=== PATIENT | male | born 1970 | race Caucasian/White ===

== ENCOUNTER 2020-05-03 19:19 | Emergency (ER) | payer OTHER, SELFPAY ==
[2019-10-25 07:59] VITALS: BMI 17.9
[2020-05-03 19:19] VITALS: BP 145/92; PULSE 98; RESP 16; TEMP 36.3; O2SAT 96
[2020-05-03 19:20] VITALS: BP 145/92; PULSE 96; RESP 16; TEMP 36.3; O2SAT 97; BMI 30.2
--- NOTE | 2020-05-03 19:45 | RAD_ITS ---
STUDY: X-RAY - LEFT HAND, ATTENTION 4TH FINGER REASON FOR EXAM: Male, 49 years old. laceration to left 4th digit from glass TECHNIQUE: 3 view(s) of the finger were obtained. COMPARISON: 08/30/2013. FINDINGS: Normal metacarpal head. Normal metacarpophalangeal joint. Normal proximal phalanx. Normal middle phalanx. Normal distal phalanx. Normal proximal interphalangeal joint. Normal distal interphalangeal joint. Hyperdensity in the soft tissues anterior to the distal interphalangeal joint and distal phalanx of the 4th digit. This may represent soft tissue calcification or Iodine in the area of concern, less likely hemorrhage. RAD/Finger(s) Min 2 Views IMPRESSION: 1. No fracture or osseous abnormality. 2. Faint hyperdensity in the volar soft tissues, possible soft tissue calcification, Iodine, less likely hemorrhage. Electronically Signed: Marie Wilkinson MD at 20:52 EST Tel , Service support ,
--- NOTE | 2020-05-03 19:55 | ED.DCSUM_ITS ---
History of Present Illness Chief Complaint: Laceration Informant: Patient Narrative: Patient is a previously healthy 49-year-old male who presents to the emergency department for laceration to left ring and pinky finger. He states that he was reaching behind some blocked glass whenever there was a shard sticking out. He is still having active bleeding from the ring finger but bleeding controlled from the pinky finger. He denies any loss of sensation. No loss of strength or range of motion. He is not sure when his last tetanus shot was. He is not on any blood thinning medications. Past Medical History - Allergies and Home Meds Allergies/Adverse Reactions: Allergies No Known Allergies Allergy (Unverified 10/25/19 07:19) Primary Care Physician: Carter Hernandez MD [Primary Care Provider] - 7 Days for suture removal Prior records reviewed: Yes Past Medical History: None Smoking Status: Never smoker Review of Systems All systems negative except as indicated General: Denies: Chills, Fever ENT: Denies: Rhinorrhea Cardiovascular: Denies: Chest pain Respiratory: Denies: Dyspnea, Cough Gastrointestinal: Denies: Abdominal pain, Nausea, Vomiting Musculoskeletal: Reports: Extremity Pain. Denies: Swelling Skin: Reports: Wounds Hematologic: Denies: Easy bruising, Easy bleeding Physical Exam Vital Signs/Narrative: Vital Signs Temp Pulse Resp BP Pulse Ox 05/03/20 19:20 97.4 F L 96 16 145/92 H 97 05/03/20 19:19 97.4 F L 98 16 145/92 H 96 Inital Vital Signs reviewed: Yes General: Well nourished, Well developed Head: Normocephalic, Atraumatic Eyes: Perrl, EOMI ENT: Moist mucous membranes Neck: Supple, Nontender Respiratory: No distress Abdomen: Nondistended Extremities: - - 1.5 cm linear laceration to dorsal proximal ring finger. Superficial laceration to dorsal pinky finger. Skin: Normal color, No rash Neurological: Alert, Normal Strength, Normal Sensation Psychological: Normal affect, Normal Mood Diagnostic/Tx/Re-eval - Medical Decision Making Patient presents to the ED for laceration to his left fingers. He felt like there might be a foreign body if with the glass present so an x-ray was obtained. This did not show any obvious foreign body. I did not find any on physical exam. Wound copiously irrigated, cleaned with soapy water. The ring finger was repaired with 3 sutures. The cut to the pinky finger was dressed with antibiotic ointment and a Band-Aid. Fingers were hardy taped together. We will have him follow-up with his PCP for suture removal in 7 days. Warning signs and symptoms for which to return to the ED including any evidence of infection are reviewed. He understands and is agreeable this plan. Will discharge home in stable condition. Procedures Procedure(s): Laceration repair: Informed consent was obtained before procedure started. The appropriate timeout was taken. The area was prepped and draped in the usual sterile fashion. Local anesthesia was achieved using 4cc of lidocaine 1% without epinephrine utilizing a digital block. The wound was copiously irrig ated and cleaned with soapy water. 3 5-0 Ethilon simple interrupted sutures were placed. A dressing was applied to the area and anticipatory guidance, as well as standard post procedure care, was explained. Return precautions are given. The patient tolerated the procedure well without any apparent complications. Follow-up visit set for suture removal and evaluation of laceration. ED Disposition - Plan for ED Patient: Disposition: Home or Assisted Living Diagnosis: Finger laceration Instructions: ED Laceration All Closures Referrals: Carter Hernandez MD [Primary Care Provider] - 7 Days for suture removal
== END 2020-05-03 21:13 | disposition home or self-care (01) ==
PROVIDERS: Emergency Provider Emergency Medicine; PCP Family Medicine
DX: S61.215A Laceration without foreign body of left ring finger without damage to nail, initial encounter (principal); S61.217A Laceration without foreign body of left little finger without damage to nail, initial encounter; W25.XXXA Contact with sharp glass, initial encounter; Y93.9 Activity, unspecified; Y92.9 Unspecified place or not applicable; Y99.9 Unspecified external cause status
CPT/HCPCS: 12001; 73140; 99283

== ENCOUNTER 2021-05-20 07:10 | Emergency (ER) | payer OTHER, SELFPAY ==
[2021-05-20 07:11] VITALS: BP 147/87; PULSE 101; RESP 18; TEMP 36.4; O2SAT 96; BMI 30.2
--- NOTE | 2021-05-20 07:21 | CT_ITS ---
STUDY: CT ABDOMEN AND PELVIS WITH CONTRAST REASON FOR EXAM: Male, 50 years old. Pain. Evaluate for diverticulitis. RADIATION DOSAGE (If Supplied By Facility): CTDIvol = ( 17.83 ) mGy, DLP = ( 1349.44 ) mGycm TECHNIQUE: Transaxial images were obtained from the dome of the diaphragm to the symphysis pubis without oral contrast. 100 ml of ISOVUE-300 contrast was administered. Sagittal and coronal images were reconstructed. Individualized dose optimization techniques were used for this CT. COMPARISON: None. FINDINGS: The visualized lung bases are clear. The visualized portions of the heart and pericardium are within normal limits. There are no calcified gallstones present. The liver is within normal limits. There are no suspicious hepatic lesions. The spleen is normal in size. The pancreas is within normal limits. The adrenal glands are within normal limits. There are no renal or ureteral stones. There is no hydronephrosis. There are no focal renal lesions. Normal visualized stomach. There is no bowel obstruction. There is a large amount of stool in the colon and rectal vault, consistent with constipation and fecal impaction. There is bowel wall thickening in the rectosigmoid colon with adjacent stranding. This is consistent with stercoral colitis. The appendix is not visualized, but there are no findings to suggest acute appendicitis. The aorta is normal in caliber. There is no abdominal or pelvic free air, free fluid, fluid collection or lymphadenopathy. There are no destructive osseous lesions. CT/Abdomen/Pelvis W IV Cont ONLY IMPRESSION: Constipation and fecal impaction with wall thickening in the rectosigmoid colon. This is consistent with stercoral colitis. No bowel obstruction. No free air, free fluid or fluid collection. Electronically Signed: Jung Cooney MD at 8:29 EST Tel , Service support ,
--- NOTE | 2021-05-20 07:21 | EDS_ITS ---
HPI History of Present Illness Chief Complaint: Abd Pain Informant: patient and spouse/S.O. Narrative Narrative: 50-year-old male with no significant medical problems states that yesterday afternoon he developed left lower quadrant abdominal pain. He notes that it is worse with standing up straight in his legs while he is laying and walking. He describes a constant ache that occasionally becomes sharp and stabbing. No fevers. He notes anorexia but no nausea vomiting. States he is tried several things to have a bowel movement but cannot. No history of colonoscopy or diverticulitis. [facility] Medical History (Updated 05/20/21 @ 08:[address] Pedrito Thibodeaux DO) Seasonal allergies Shoulder pain SOB (shortness of breath) Home Medications amoxicillin-pot clavulanate 875 mg PO Q12H #7 tablet 05/20/21 [Rx Last Taken Unknown] dicyclomine 20 mg PO TIDAC PRN #20 capsule 05/20/21 [Rx Last Taken Unknown] docusate sodium [DOK] 100 mg PO DAILY #20 capsule 05/20/21 [Rx Last Taken Unknown] magnesium citrate 300 ml PO X1 PRN #3 bottle 05/20/21 [Rx Last Taken Unknown] Allergy/AdvReac Type Severity Reaction Status Date / Time No Known Allergies Allergy Unverified 05/20/21 07:12 Social History Smoking Status: Never smoker alcohol intake: never ROS ROS ED Constitutional Constitutional ED: Denies chills or weight loss Eyes Eyes: Denies change in vision or diplopia ENT ENT ED: Denies ear pain, rhinorrhea or sore throat Cardiovascular Cardiovascular: Denies chest pain, orthopnea, palpitations or racing heartbeat Respiratory/Chest Respiratory/Chest: Denies cough, dyspnea or orthopnea Gastrointestinal Gastrointestinal: Reports abdominal pain and constipation; Denies diarrhea, nausea or vomiting Genitourinary Genitourinary ED: Denies dysuria, hematuria or urinary frequency Musculoskeletal Musculoskeletal: Denies arthralgias or myalgias Integumentary Denies abscess or rash Neurologic Neurologic: Denies headache(s) or weakness Psychiatric Psychiatric: Denies anxiety, depression, suicidal ideation or suicidal thoughts Endocrine Endocrinology: Denies polydipsia, polyphagia or polyuria Allergic/Immunologic Allergic/Immunologic ED: Denies mouth swelling, tongue swelling or urticaria EXAM Physical Exam Narrative Exam Narrative: 50-year-old male laying on his back with his knees bent. Const Vital Signs: 05/20/21 07:11 Temperature 97.6 F L Temperature Source Temporal Pulse Rate 101 H Respiratory Rate 18 Blood Pressure 147/87 H Blood Pressure Mean 107 Pulse Ox 96 Oxygen Delivery Method Room Air Positive well nourished and well developed General Appearance ED: well developed HEENT Reports normocephalic, head/scalp atraumatic, TM's clear and moist mucous membranes Negative for trauma Tympanic Membrane ED: Yes TM's clear Eyes PERRL and EOMs intact bilaterally Neck no lymphadenopathy, supple and no JVD Resp normal respiratory effort and clear to auscultation bilaterally Cardio regular rate, regular rhythm and no murmurs GI Auscultation: normoactive bowel sounds Palpation: soft, tender LLQ and suprapubic and guarding Back/Spine no CVA tenderness and normal ROM Extremity normal to inspection General Extremety ED: Negative for edema General Extremity: Negative for edema Neuro oriented x3 and CN's II-XII intact bilaterally Sensorium / Orientation: alert Motor Exam: strength 5/5 throughout Psych mental status grossly normal Mood & Affect: Negative for depressed or tearful Skin no rashes or lesions noted and no wounds MDM MDM MDM Narrative Medical decision making narrative: White count slightly elevated 13.3. CMP and urine negative. CT of the abdomen pelvis with IV contrast was obtained which demonstrates large amount of stool in the descending sigmoid and rectum. There is evidence of stercoral colitis. Patient received pain and nausea medications. IV fluids were given. Patient will be treated with magnesium citrate, home enemas, Bentyl and daily Colace. He notes return instructions. Follow-up with primary care in 1 week. Lab Data Attestation: I reviewed the patient's lab results. Labs: Laboratory Results - last 24 hr 05/20/21 05/20/21 05/20/21 07:30 07:30 08:25 WBC 13.3 H RBC 5.03 Hgb 15.2 Hct 43.5 MCV 86.5 MCH 30.2 MCHC 34.9 RDW Std Deviation 39.5 RDW Coeff of Mayank 12.5 Plt Count 281 MPV 8.5 Immature Gran % (Auto) 0.300 Neut % (Auto) 80.1 H Lymph % (Auto) 11.7 L [place] % (Auto) 7.4 Eos % (Auto) 0.2 Baso % (Auto) 0.3 Absolute Neuts (auto) 10.7 H Absolute Lymphs (auto) 1.56 Nucleated RBC % 0 Sodium 136 Potassium 3.8 Chloride 104 Carbon Dioxide 25.0 Anion Gap 7 BUN 17 Creatinine 0.98 Estim Creat Clear Calc 91.18 Est GFR (MDRD) Af Amer 105 Est GFR (MDRD) Non-Af 86 BUN/Creatinine Ratio 17.4 Glucose 132 H Calcium 8.6 Total Bilirubin 0.70 AST 18 ALT 30 Alkaline Phosphatase 77 Total Protein 7.4 Albumin 3.6 Globulin 3.8 Albumin/Globulin Ratio 0.9 Urine Color Yellow Urine Clarity Clear Urine pH 6.5 Ur Specific [place] 1.010 Urine Protein Negative Urine Glucose (UA) Normal Urine Ketones Negative Urine Occult Blood Negative Urine Nitrite Negative Urine Bilirubin Negative Urine Urobilinogen Normal Ur Leukocyte Esterase Negative Urine RBC 0 SEEN Urine WBC 0 SEEN Ur Squamous Epith Cells 0 SEEN Urine Bacteria 0 SEEN Urine Mucus 0 SEEN Radiography Diagnostic Testing: Clinical Impression(s) from Imaging Studies Abdomen/Pelvis CT 05/20/21 07:21 IMPRESSION: Constipation and fecal impaction with wall thickening in the rectosigmoid colon. This is consistent with stercoral colitis. No bowel obstruction. No free air, free fluid or fluid collection. Electronically Signed: Jung Cooney MD at 8:29 EST Tel , Service support , Discharge Plan Triage Chief Complaint: Abd Pain ED Provider: Pedrito Thibodeaux Dx/Rx/DC Orders Clinical Impression: Constipation, Abdominal pain, acute, Stercoral colitis Prescriptions: New docusate sodium [DOK] 100 MG capsule 100 mg PO DAILY Qty: 20 RF: 0 amoxicillin-pot clavulanate [amoxicillin-pot clavulanate] 875 MG tablet 875 mg PO Q12H Qty: 7 RF: 0 magnesium citrate Solution 300 ml PO X1 PRN (Reason: constipation) Qty: 3 RF: 0 dicyclomine 10 MG capsule 20 mg PO TIDAC PRN (Reason: Abdominal Discomfort) Qty: 20 RF: 0 Primary Care Provider: Carter Hernandez Referrals: Carter Hernandez MD [Primary Care Provider] - 1 Week Disposition Disposition: Home, Self Care
[2021-05-20 07:32] LABS: Absolute Lymphocyte Count 1.56 X10^3/uL (0.83-4.51); Absolute Neutrophil Count 10.7 X10^3/uL (2.0-7.7); Basophil# 0.04 X10^3/uL; Basophil% 0.3 % (0-1); Eosinophil# 0.02 X10^3/uL; Eosinophils% 0.2 % (0-5); Hematocrit 43.5 % (40-54); Hemoglobin 15.2 g/dL (13.0-16.5); Lymphocyte # 1.56 X10^3/ul (0.83-4.51); Lymphocyte % 11.7 % (19-41); Mean Corp Hgb Conc 34.9 g/dL (32-36); Mean Corpuscular Hgb 30.2 pg (27.0-32.0); Mean Corpuscular Volume 86.5 fL (80-94); Mean Platelet Vol. 8.5 fl (6.2-12.0); Monocyte# 0.98 X10^3/uL; Monocyte% 7.4 % (0-10); NRBC Flagged by Analyzer 0 % (0-5); Neutrophil # 10.69 X10^3/uL (2.7-7.7); Neutrophil % 80.1 % (47-70); Platelet Count 281 K/mm3 (150-450); RBC Distribution Width CV 12.5 % (11.6-14.6); RBC Distribution Width SD 39.5 fl (35.1-43.9); Red Blood Count 5.03 M/mm3 (4.6-6.2); White Blood Count 13.3 K/mm3 (4.4-11.0)
[2021-05-20] MEDS: Morphine 4 MG/ML Syringe IV (07:32)
[2021-05-20] MEDS: 0.9% Normal Saline 1,000 ML 1000 ML IV (07:32)
[2021-05-20] MEDS: Ondansetron 4 MG/2 ML Vial IV (07:32)
[2021-05-20 07:49] LABS: ALB/GLOB Ratio 0.9 RATIO (0.9-2.4); AST(SGOT) 18 U/L (15-37); Alanine Aminotransfer ALT/SGPT 30 U/L (16-61); Albumin, Serum 3.6 g/dL (3.2-5.0); Alkaline Phosphatase 77 U/L (45-117); Anion Gap 7 (5-15); BUN 17 mg/dL (7-18); BUN/Creat Ratio 17.4 RATIO (10-20); Calcium,Total 8.6 mg/dL (8.5-10.1); Chloride 104 mmol/L (98-107); Creatinine, Serum 0.98 mg/dL (0.70-1.30); EST Glomerular Filtration Rate 86 mL/min (>60); Est Glom Filt Rate - Afr Amer 105 mL/min (>60); Estimated Creatinine Clearance 91.18 ml/min; Globulin 3.8 g/dL (2.2-4.2); Glucose 132 mg/dL (74-106); Potassium 3.8 mmol/L (3.5-5.1); Protein, Total 7.4 g/dL (6.4-8.2); Sodium Level 136 mmol/L (136-145)
[2021-05-20 08:27] LABS: Bacteria 0 SEEN /hpf (None Seen); Mucous, Urine 0 SEEN /hpf (<or=2+); Red Blood Cells-Urine 0 SEEN /hpf (0-5); Squamous Epithelial Cells - UA 0 SEEN /hpf (0-5); White Blood Cells 0 SEEN /hpf (0-5)
[2021-05-20 08:29] LABS: Color, Urine Yellow (Yellow); Glucose, Dipstick Normal (Normal); Ketone-Dipstick Negative (Negative); Leukocyte Esterase-Dipstick Negative /ul (Negative); Nitrite-Dipstick Negative (Negative); Occult Blood-Urine Negative /ul (Negative); Protein-Dipstick Negative (Negative); Urine Bilirubin Dipstick Negative (Negative); Urine Clarity Clear (Clear); Urine Urobilinogen Normal (Normal); Urine pH 6.5 (5.0 - 8.0)
[2021-05-20 09:05] VITALS: BP 129/66; PULSE 69; RESP 14; O2SAT 98
== END 2021-05-20 09:06 | disposition home or self-care (01) ==
PROVIDERS: Emergency Provider Emergency Medicine; PCP Family Medicine
DX: K52.89 Other specified noninfective gastroenteritis and colitis (principal); R10.32 Left lower quadrant pain; K59.00 Constipation, unspecified; Z79.899 Other long term (current) drug therapy
CPT/HCPCS: 74177; 80053; 81001; 85025; 96361; 96374; 96375; 99283; J7030; Q9967; A4216; J2405

== ENCOUNTER 2022-02-06 21:50 | Emergency (ER) | payer OTHER, SELFPAY ==
[2022-02-06 21:51] VITALS: BP 134/83; PULSE 77; RESP 18; TEMP 36.8; O2SAT 95; BMI 30.4
--- NOTE | 2022-02-06 22:11 | EDS_ITS ---
HPI History of Present Illness Chief Complaint: Lower Extremity Injury Informant: patient Onset/Context/Timing Onset: Today Context: Gradual Onset Timing: Continuous Quality of Pain: Aching Location: R knee Current Severity: Mild Maximum Severity: Moderate Worsened by: moving knee, palpation Relieved by: rest and remaining still Associated Symptoms Associated Symptoms: Negative for Parasthesia, Weakness or Loss of Funtion Narrative Narrative: Healthy 51-year-old male presenting with spontaneous onset of painful red swollen right knee that started earlier today and has progressed. He states that he comes in early this time because last time it was much more swollen than this, and he was treated with antibiotics and got better. He followed up with orthopedics but did not need surgery. He does not know what it exactly was. He states he is occasionally kneeling, he did this couple times in the last couple days but nothing more than usual. No injury. No fevers, chills, systemic symptoms. [facility] Medical History (Updated 02/06/22 @ 23:[address] Chris Vazquez MD) Seasonal allergies Shoulder pain SOB (shortness of breath) Home Medications clindamycin HCl 150 mg capsule 300 mg PO 4X/DAY #80 CAPSULES 02/06/22 [Rx Last Taken Unknown] Allergy/AdvReac Type Severity Reaction Status Date / Time No Known Allergies Allergy Verified 02/06/22 21:51 Social History Smoking Status: Never smoker alcohol intake: never ROS ROS ED Constitutional Constitutional ED: Denies chills or fever(s) Musculoskeletal Musculoskeletal: Reports extremity pain; Denies neck pain Integumentary Denies Abrasions, rash or wounds Neurologic Neurologic: Denies paresthesias or weakness EXAM Physical Exam Const Vital Signs: 02/06/22 21:51 Temperature 98.2 F Temperature Source Temporal Pulse Rate 77 Respiratory Rate 18 Blood Pressure 134/83 H Blood Pressure Mean 100 Pulse Ox 95 Oxygen Delivery Method Room Air Positive well nourished and well developed General Appearance ED: well developed and NAD Neck full ROM and supple Back/Spine normal ROM and normal to inspection Extremity normal to inspection and full ROM Extremity Narrative: Erythematous hot and tender right prepatellar soft tissues which are boggy. No skin lesion to suggest cutaneous abscess/nidus. NO effusion of the joint. Full range of motion of the knee without difficulty. Neuro oriented x3, no focal motor deficits and no sensory deficits noted Sensorium / Orientation: alert Psych mental status grossly normal and thought process normal Skin no wounds Skin Narrative: Erythema right anterior knee only. None of the other right knee areas are warm or red. No lymphangitis. No nidus for infection. Rashes: no rashes MDM MDM MDM Narrative Medical decision making narrative: I would say this is a septic bursitis until proven otherwise. I did discuss drawing fluid out of the bursa, so that we can send her for a culture. He was amenable to that, see the procedure note it was done on and we got a cc out. I do not think we need to do cell counts on this, since I do not have much fluid and it is bloody. I am going to put him on antibiotics, he has a knee immobilizer at home that he is advised to use for at least the next few days as long as things are improving, he can then go to the [facility] wrap which we gave him here. Started him on clindamycin. Procedures Other Procedures Procedure(s): Aspiration right prepatellar bursa: Chlorhexidine prep, informed consent signed. Locally anesthetized with 1 cc plain 1% lidocaine, followed by using an 18-gauge through that area to aspirate the bursa from an anteromedial approach, was able to aspirate 1 cc of thick bloody bursal fluid, nonpurulent. Dressed with bacitracin, tolerated well no complications. Discharge Plan Triage Chief Complaint: Lower Extremity Injury ED Provider: Chris Vazquez Dx/Rx/DC Orders Clinical Impression: Septic prepatellar bursitis of right knee Instructions: ED Bursitis Prescriptions: New clindamycin HCl 150 mg capsule 300 mg PO 4X/DAY Qty: 80 0RF Primary Care Provider: Carter Hernandez Referrals: Carter Hernandez MD [Primary Care Provider] - Finesse Gonzalez MD [Med Staff - Active Staff] - 3-5 Days if not improving Disposition Disposition: Home, Self Care
[2022-02-06] MEDS: Lidocaine 1% (20 ml mdv) 20 ML Vial 5 ML INFILT (22:45)
[2022-02-06] MEDS: Clindamycin HCl 150 MG Capsule 300 MG PO (23:12)
[2022-02-06 23:19] VITALS: PULSE 78; RESP 16; O2SAT 99
== END 2022-02-06 23:23 | disposition home or self-care (01) ==
PROVIDERS: Emergency Provider Emergency Medicine; PCP Family Medicine; Visit Provider Emergency Medicine
DX: M70.41 Prepatellar bursitis, right knee (principal); M71.161 Other infective bursitis, right knee
CPT/HCPCS: 20610; 87070; 87075; 87205; 99282

== ENCOUNTER 2022-04-04 06:57 | Day surgery (SDC) | payer OTHER, SELFPAY ==
[2022-04-04] VITALS (11 sets, daily range): BP systolic 92–127; BP diastolic 62–82; PULSE 56–66; RESP 14–16; TEMP 36.2–36.9; O2SAT 88–100
[2022-04-04] MEDS: Lactated Ringers 1,000 ML 15 ML IV (07:32)
--- NOTE | 2022-04-04 07:42 | PCM.HP.STD ---
[facility] - General General Date of Service: 04/04/22 Chief Complaint: Screening for intestinal cancer HPI Narrative ABDIAZIZ JACKSON, is a 51 M who presents presents for screening colonoscopy today. He has not had a previous one. He presents via open access. He states that he enjoys good health. Family history negative for colon cancer but he states that his father did have colon polyps. The patient denies any abdominal pain bright red blood per rectum or melena. [facility] Medical History (Updated 04/02/22 @ 08:34 by Kelsie Verduzco) Abscess Chronic pain in right shoulder Contact dermatitis and eczema due to plant Non-smoker Seasonal allergies Shoulder pain Sinusitis, acute SOB (shortness of breath) Staphylococcal infection of skin Wears contact lenses Home Medications multivitamin 1 tab PO DAILY 02/21/22 [History Last Taken Unknown] Allergy/AdvReac Type Severity Reaction Status Date / Time No Known Allergies Allergy Verified 04/02/22 08:29 Family History (Updated 02/21/22 @ 14:32 by Opal Adkins) Father Colon polyps Diverticulitis Myocardial infarction Surgical History History of right inguinal hernia repair History of surgical removal of ganglion cyst Hx of tonsillectomy Social History Smoking Status: Never smoker alcohol intake: never ROS Constitutional Constitutional: Reports systems reviewed and no addt'l complaints, except as documented Cardiovascular Cardiovascular: Denies chest pain Respiratory/Chest Respiratory/Chest: Denies shortness of breath at rest Gastrointestinal Gastrointestinal: Denies abdominal pain, change in bowel habits, hematochezia or melena Vital Signs Vital Signs Vital Signs: 04/04/22 07:26 04/04/22 07:28 Temperature 98.4 F Temperature Source Temporal Pulse Rate 63 Respiratory Rate 16 Respiratory Pattern Normal Blood Pressure 127/77 H Blood Pressure Mean 93 Blood Pressure Source Monitor Blood Pressure Position Semi-Fowlers Blood Pressure Location Right Arm Pulse Ox 98 Oxygen Delivery Method Room Air Weight Weight: 209 lb 7.026 oz Body Mass Index (BMI) 30.0 Physical Exam Const alert, oriented x3 and no apparent distress General Appearance: cooperative and comfortable Eyes General Eye: normal appearance of both eyes Neck General: normal visual inspection Chest inspection of chest normal Resp Effort and Inspection: able to speak in complete sentences and symmetric chest movement Auscultation: clear to auscultation bilaterally Cardio regular rate and regular rhythm GI soft to palpation, non-tender and non-distended Extremity no calf tenderness Neuro oriented x3 Psych thought process normal Assessment & Plan Assessment/Plan (1) Encounter for screening for malignant neoplasm of colon: PLAN: The patient presents via open access today. We plan to proceed with a screening colonoscopy with possible biopsy or polypectomy as indicated. He is aware of the technique, benefit, risk, alternatives. We will proceed as noted. Robbi Andrews M.D., F.A.C.S.
[2022-04-04] MEDS: Midazolam 5 MG/ML Syringe (08:00)
--- NOTE | 2022-04-04 08:26 | OP.COLON_ITS ---
Patient Name: Bart Nagy Procedure Date: 04/04/2022 8:00 AM Date of : 1970 Age: 51 Procedure: Colonoscopy Indications: Screening for colorectal malignant neoplasm Providers: Robbi Andrews MD Medicines: Midazolam 5 mg IV, Meperidine 100 mg IV Patient Profile: Last Colonoscopy: none. The patient's first colonoscopy is today. Complications: No immediate complications. Procedure: Pre-Anesthesia Assessment: - Prior to the procedure, a History and Physical was performed, and patient medications and allergies were reviewed. The patient's tolerance of previous anesthesia was also reviewed. The risks and benefits of the procedure and the sedation options and risks were discussed with the patient. All questions were answered, and informed consent was obtained. Prior Anticoagulants: The patient has taken no previous anticoagulant or antiplatelet agents. ASA Grade Assessment: II - A patient with mild systemic disease. After reviewing the risks and benefits, the patient was deemed in satisfactory condition to undergo the procedure. After I obtained informed consent, the scope was passed under direct vision. Throughout the procedure, the patient's blood pressure, pulse, and oxygen saturations were monitored continuously. The colonoscope was introduced through the anus and advanced to the cecum, identified by appendiceal orifice and ileocecal valve. The colonoscopy was performed without difficulty. The patient tolerated the procedure well. The quality of the bowel preparation was good. The ileocecal valve and the appendiceal orifice were photographed. Moderate Sedation: Moderate (conscious) sedation was personally administered by the endoscopist. The following parameters were monitored: oxygen saturation, heart rate, blood pressure, and response to care. Total physician intraservice time was 15 minutes. Scope In: 8:05:13 AM Scope Withdrawal Time 0 hours 7 minutes 15 seconds Scope Out: 8:21:01 AM Total Procedure Duration Time 0 hours 15 minutes 48 seconds Findings: The perianal and digital rectal examinations were normal. The colon (entire examined portion) appeared normal. Impression: - The entire examined colon is normal. - No specimens collected. Recommendation: - Discharge patient to home. - Resume previous diet. - Continue present medications. - Repeat colonoscopy in 10 years for screening purposes. Procedure Code(s): --- Professional --- 53595, Colonoscopy, flexible; diagnostic, including collection of specimen(s) by brushing or washing, when performed (separate procedure) 58923, 59, Moderate sedation services provided by the same physician or other qualified health medical care administrator performing the diagnostic or therapeutic service that the sedation supports, requiring the presence of an independent trained observer to assist in the monitoring of the patient's level of consciousness and physiological status; initial 15 minutes of intraservice time, patient age 5 years or older Diagnosis Code(s): --- Professional --- Z12.11, Encounter for screening for malignant neoplasm of colon CPT copyright 2017 [employer]. All rights reserved. The codes documented in this report are preliminary and upon engineering department chair review may be revised to meet current compliance requirements. Robbi Andrews MD 04/04/2022 8:25:31 AM This report has been signed electronically. Number of Addenda: 0 Note Initiated On: 04/04/2022 8:00 AM
--- NOTE | 2022-04-04 08:26 | OP.CCLET_ITS ---
04/04/2022 Carter Hernandez [address] [facility] [address] [place] [address] Re : Colonoscopy procedure for Bart Nagy Dear Dr. Hernandez This procedure was performed on Monday, April 04, 2022. My impressions and recommendations are as follows: Impressions : - The entire examined colon is normal. - No specimens collected. Recommendations : - Discharge patient to home. - Resume previous diet. - Continue present medications. - Repeat colonoscopy in 10 years for screening purposes. My findings are described in the full procedure note, which is enclosed. If I can be of further assistance, please feel free to contact me at Doctor phone number(s): Work: . Sincerely, Robbi Andrews MD 04/04/2022 8:25:31 AM This report has been signed electronically.
== END 2022-04-04 09:51 | disposition home or self-care (01) ==
LOC: EN 06:57 → AC 06:59
PROVIDERS: PCP Family Medicine; Referring Provider Surgery; Visit Provider Surgery
PROC: 0DJD8ZZ Inspection of Lower Intestinal Tract, Via Natural or Artificial Opening Endoscopic (ICD-10-PCS; CPT 45378; principal; 2022-04-04 07:55)
DX: Z12.11 Encounter for screening for malignant neoplasm of colon (principal)
CPT/HCPCS: 45378; 99152; 99153; J7120

== ENCOUNTER → 2022-10-17 | Outpatient (CLI) | payer OTHER, SELFPAY ==
--- NOTE | 2022-10-17 09:10 | US_ITS ---
STUDY: ULTRASOUND BREAST - RIGHT REASON FOR EXAM: Male, 52 years old. Palpable lump in the right breast. TECHNIQUE: Axial and longitudinal images of the RIGHT breast were performed with a high resolution ultrasound transducer. # OF IMAGES: 32 COMPARISON: Comparison is made with prior mammogram done earlier in the day. FINDINGS: RIGHT Breast: The upper inner quadrant of the right breast was examined with ultrasound. There is evidence of a 1.4 cm x 0.6 cm echogenic nodule in the 3:00 position of the breast at 6 cm from the nipple. This is suggestive of a lipoma. . IMPRESSION: Findings suggestive of a 1.4 cm x 0.6 cm in length, at the 3:00 position of the breast at 6 cm from the nipple. This is suggestive of a lipoma. ASSESSMENT CATEGORY: BIRADS Category 2: Benign. A letter regarding these results will be sent to the patient by the facility within 30 days. Electronically Signed: Naeem Ac MD at 15:25 EDT , STUDY: ULTRASOUND BREAST - LEFT REASON FOR EXAM: Male, 52 years old. Palpable lump left breast. TECHNIQUE: Axial and longitudinal images of the LEFT breast were performed with a high resolution ultrasound transducer. # OF IMAGES: 32 COMPARISON: Comparison is made with prior mammogram done earlier in the day. FINDINGS: LEFT Breast: Inferior aspect of the left breast was examined with ultrasound. No sonographic abnormalities seen. US/Breast Limited Unilateral IMPRESSION: No sonographic abnormality is seen. ASSESSMENT CATEGORY: BIRADS Category 1: Negative. A letter regarding these results will be sent to the patient by the facility within 30 days. Electronically Signed: Naeem Ac MD at 15:26 EDT ,
--- NOTE | 2022-10-17 09:10 | BI_ITS ---
MAMMOGRAPHY - BILATERAL DIAGNOSTIC REASON FOR EXAM: Male, 52 years old. Right breast lump. PERTINENT HISTORY: Non-contributory. TECHNIQUE: Digital bilateral breast jere (3D mammographic acquisition) in the CC and MLO projections. 2-D mediolateral oblique (MLO) and craniocaudad (CC) views of both breasts were obtained. CAD: Full Field Digital Mammography with Computer Added Detection was performed. COMPARISON: None. Baseline examination. FINDINGS: Breast Composition: The breasts are almost entirely fatty. There are no dominant masses or suspicious calcifications. There is a 6.1 mm well-defined nodule in the upper deep lateral aspect of the right breast suggestive of a small lymph node. No other significant abnormalities are identified. BI/DIAG MAMM W/CAD, BILAT IMPRESSION: Negative diagnostic mammogram. With the patient''s history of a palpable lump in the periareolar region of the right breast, correlation with ultrasound is recommended. ASSESSMENT CATEGORY: BIRADS Category 0: Incomplete. Need additional imaging evaluation. A letter regarding these results will be sent to the patient by the facility within 30 days. Approximately 10% of breast cancers are not detected by mammography. A normal mammogram should not delay biopsy of a clinically suspicious abnormality. Electronically Signed: Naeem Ac MD at 10:25 EDT ,
== END | disposition home or self-care (01) ==
LOC: OPBI 09:03
PROVIDERS: PCP Family Medicine; Referring Provider Family Medicine; Visit Provider Family Medicine
DX: N63.10 Unspecified lump in the right breast, unspecified quadrant (principal); R22.2 Localized swelling, mass and lump, trunk; D17.1 Benign lipomatous neoplasm of skin and subcutaneous tissue of trunk
CPT/HCPCS: 76642; 77062; 77066; G0279

== ENCOUNTER → 2023-01-22 | Outpatient (CLI) | payer OTHER, SELFPAY ==
[2023-01-22 12:05] LABS: Hematocrit 43.3 % (40-54); Hemoglobin 14.8 g/dL (13.0-16.5)
[2023-01-22 12:37] LABS: ALB/GLOB Ratio 1.1 RATIO (0.9-2.4); AST(SGOT) 21 U/L (15-37); Alanine Aminotransfer ALT/SGPT 33 U/L (16-61); Albumin, Serum 3.7 g/dL (3.2-5.0); Alkaline Phosphatase 85 U/L (45-117); Anion Gap 5 (5-15); BUN 21 mg/dL (7-18); BUN/Creat Ratio 21.7 RATIO (10-20); CRP, High Sensitivity Cardiac 1.52 mg/L; Calcium,Total 8.7 mg/dL (8.5-10.1); Chloride 106 mmol/L (98-107); Cholesterol 226 mg/dL (200); Creatinine, Serum 0.97 mg/dL (0.70-1.30); EST Glomerular Filtration Rate 87 mL/min (>60); Est Glom Filt Rate - Afr Amer 105 mL/min (>60); Globulin 3.5 g/dL (2.2-4.2); Glucose 97 mg/dL (74-106); High Density Lipoprotein 43 mg/dL; PSA,Total - Annual Screen 1.21 ng/mL (0.00-4.00); Potassium 4.7 mmol/L (3.5-5.1); Protein, Total 7.2 g/dL (6.4-8.2); Sodium Level 138 mmol/L (136-145); Triglycerides 297 mg/dL; Very Low Density Lipoprotein 59 mg/dL (5-40)
[2023-01-22 13:14] LABS: Hepatitis C Antibody Non-Reactive (Nonreactive)
== END | disposition home or self-care (01) ==
LOC: MFPLAB 09:51
PROVIDERS: PCP Family Medicine; Visit Provider Family Medicine
DX: Z11.59 Encounter for screening for other viral diseases (principal); Z13.220 Encounter for screening for lipoid disorders; Z12.5 Encounter for screening for malignant neoplasm of prostate; Z82.49 Family history of ischemic heart disease and other diseases of the circulatory system
CPT/HCPCS: 36415; 80053; 80061; 84153; 85014; 85018; 86141; 86803; G0103

== ENCOUNTER → 2023-08-25 | Outpatient (CLI) | payer OTHER, SELFPAY ==
--- NOTE | 2023-08-25 15:37 | RAD_ITS ---
STUDY: X-RAY CHEST REASON FOR EXAM: Male, 52 years old. Dyspnea on minimal exertion. TECHNIQUE: Frontal and lateral views of the chest. COMPARISON: None. FINDINGS: Mild hyperinflation. There is no demonstrated pleural abnormality. Mild cardiomegaly with left ventricular contour. Normal mediastinum and genna. Normal visualized pulmonary arteries. Aortic tortuosity. Thoracic osteopenia with mild anterior wedging of midthoracic vertebral bodies with slight increased kyphosis and diffuse mild spondylosis. Normal visualized ribs, clavicles, and shoulders. No abnormality of the visualized soft tissue structures of the upper abdomen. RAD/Chest PA and Lateral IMPRESSION: Mild cardiomegaly with left ventricular contour and mild hyperinflation. No active or acute cardiopulmonary disease. Electronically Signed: Dragan Chau MD at 9:29 EST ,
[2023-08-25 18:06] LABS: Absolute Lymphocyte Count 2.57 X10^3/uL (0.83-4.51); Absolute Neutrophil Count 4.3 X10^3/uL (2.0-7.7); Basophil# 0.05 X10^3/uL; Basophil% 0.6 % (0-1); Eosinophil# 0.11 X10^3/uL; Eosinophils% 1.4 % (0-5); Hematocrit 43.3 % (40-54); Hemoglobin 14.5 g/dL (13.0-16.5); Lymphocyte # 2.57 X10^3/ul (0.83-4.51); Lymphocyte % 33.3 % (19-41); Mean Corp Hgb Conc 33.5 g/dL (32-36); Mean Corpuscular Hgb 29.4 pg (27.0-32.0); Mean Corpuscular Volume 87.8 fL (80-94); Mean Platelet Vol. 8.7 fl (6.2-12.0); Monocyte# 0.68 X10^3/uL; Monocyte% 8.8 % (0-10); NRBC Flagged by Analyzer 0 % (0-5); Neutrophil # 4.28 X10^3/uL (2.7-7.7); Neutrophil % 55.6 % (47-70); Platelet Count 355 K/mm3 (150-450); RBC Distribution Width CV 12.6 % (11.6-14.6); RBC Distribution Width SD 40.6 fl (35.1-43.9); Red Blood Count 4.93 M/mm3 (4.6-6.2); White Blood Count 7.7 K/mm3 (4.4-11.0)
[2023-08-25 18:27] LABS: Erythrocyte Sedimentation Rate 9 mm/hr (0-20)
[2023-08-25 18:46] LABS: ALB/GLOB Ratio 1.1 RATIO (0.9-2.4); AST(SGOT) 15 U/L (15-37); Alanine Aminotransfer ALT/SGPT 31 U/L (16-61); Albumin, Serum 3.8 g/dL (3.2-5.0); Alkaline Phosphatase 75 U/L (45-117); Anion Gap 5 (5-15); BUN 16 mg/dL (7-18); BUN/Creat Ratio 16.8 RATIO (10-20); CRP 3.75 mg/L (0.0-3.0); Calcium,Total 8.9 mg/dL (8.5-10.1); Chloride 108 mmol/L (98-107); Creatinine, Serum 0.95 mg/dL (0.70-1.30); EST Glomerular Filtration Rate 89 mL/min (>60); Est Glom Filt Rate - Afr Amer 107 mL/min (>60); Globulin 3.6 g/dL (2.2-4.2); Glucose 79 mg/dL (74-106); Potassium 3.9 mmol/L (3.5-5.1); Protein, Total 7.4 g/dL (6.4-8.2); Sodium Level 140 mmol/L (136-145)
[2023-08-27 11:20] LABS: Cholesterol 200 mg/dL (200); High Density Lipoprotein 42 mg/dL; Triglycerides 209 mg/dL; Very Low Density Lipoprotein 42 mg/dL (5-40)
[2023-08-27 13:08] LABS: ANTINUCLEAR ANTIBODIES DIRECT Positive (Negative)
[2023-08-27 14:09] LABS: Lyme Scn Total Ab w/Rflx Negative (Negative)
== END | disposition home or self-care (01) ==
LOC: MTLAB 15:34
PROVIDERS: PCP Family Medicine; Referring Provider Family Medicine; Visit Provider Family Medicine
DX: R06.09 Other forms of dyspnea (principal); R53.83 Other fatigue; Z71.89 Other specified counseling
CPT/HCPCS: 36415; 71046; 80053; 80061; 85025; 85652; 86038; 86140; 86618

== ENCOUNTER → 2023-09-16 | Outpatient (CLI) | payer OTHER, SELFPAY ==
--- NOTE | 2023-09-16 06:55 | ECHOD_ITS ---
Reason For Study: DYSPNEA Procedure This was a 2D Doppler, Color Flow transthoracic echocardiogram. Exam performed in department. Left Ventricle Normal LV size. Left ventricular systolic function is normal. The estimated ejection fraction is 65 %. No regional wall motion abnormalities noted. Right Ventricle Normal RV size. Normal systolic function. Atria Normal left atrium. Normal right atrium. Mitral Valve Normal mitral valve. Mild (1+) eccentric mitral valve insufficiency. Tricuspid Valve Normal tricuspid valve. Aortic Valve Trisinus/trileaflet aortic valve. Pulmonic Valve Normal pulmonic valve. Great Vessels Normal aortic root. The pulmonary artery is normal size. Inferior vena cava collapse with respiration. Pericardium/Pleural No pericardial effusion. MMode/2D Measurements & Calculations LVIDd: 4.7 cm IVSd: 1.4 cm LVOT diam: 2.3 cm LVIDs: 2.9 cm LVPWd: 1.1 cm LVOT area: 4.2 cm2 RVDd: 3.7 cm FS: 38.1 % Ao root diam: 3.7 cm LAV(MOD-bp): 73.8 ml LVAd ap4: 26.2 cm2 LAV(MOD-bp) Indexed: 34.8 ml/m2 LVLd ap4: 8.5 cm LAV(MOD-sp2): 85.4 ml EDV(MOD-sp4): 68.9 ml LAV(MOD-sp4): 53.7 ml EDV(sp4-el): 69.1 ml LVAs ap4: 14.1 cm2 LVLs ap4: 6.9 cm ESV(MOD-sp4): 26.1 ml ESV(sp4-el): 24.2 ml EF(MOD-sp4): 62.2 % EF(sp4-el): 65.0 % LVAd ap2: 32.8 cm2 SV(MOD-sp4): 42.8 ml SV(MOD-sp2): 54.9 ml LVLd ap2: 9.4 cm EDV(MOD-sp2): 96.0 ml EDV(sp2-el): 97.1 ml LVAs ap2: 18.5 cm2 LVLs ap2: 7.4 cm ESV(MOD-sp2): 41.0 ml ESV(sp2-el): 39.4 ml EF(MOD-sp2): 57.3 % SV(sp4-el): 44.9 ml LA dimension(2D): 4.8 cm LA A4 area: 18.7 cm2 RA A4 area: 13.5 cm2 TAPSE: 1.8 cm Time Measurements MV dec time: 0.26 sec Doppler Measurements & Calculations MV E max gonzalez: 50.5 cm/sec Lat Peak E' Gonzalez: 16.7 cm/sec Med Peak E' Gonzalez: 6.9 cm/sec MV A max gonzalez: 56.8 cm/sec E/E' lat: 3.0 E/E' med: 7.3 MV E/A: 0.89 Ao V2 max: 158.9 cm/sec LV V1 max: 124.7 cm/sec MV dec slope: 192.9 cm/sec2 Ao max P.1 mmHg LV V1 max P.2 mmHg Ao V2 mean: 116.4 cm/sec LV V1 mean P.2 mmHg Ao mean P.8 mmHg LV V1 mean: 82.3 cm/sec Ao V2 VTI: 30.2 cm LV V1 VTI: 20.7 cm AV (velocity ratio): 0.68 [place](I,D): 2.9 cm2 [place](V,D): 3.3 cm2 SV(LVOT): 86.3 ml PA V2 max: 95.6 cm/sec TR max gonzalez: 213.0 cm/sec PA max PG (full): 1.7 mmHg TR max P.1 mmHg RVSP(TR): 21.1 mmHg ECHO/Echo Complete Interpretation Summary Normal LV size. Left ventricular systolic function is normal. The estimated ejection fraction is 65 %. Mild (1+) eccentric mitral valve insufficiency. The global longitudinal strain is mildly abnormal. Ordering Physician: Carter Hernandez Referring Physician: Carter Hernandez Performed By: Sandra Cleveland RDCS
== END | disposition home or self-care (01) ==
LOC: CVS 06:53
PROVIDERS: PCP Family Medicine; Referring Provider Family Medicine; Visit Provider Family Medicine
DX: R06.09 Other forms of dyspnea (principal)
CPT/HCPCS: 93306

== ENCOUNTER → 2023-10-20 | Outpatient (CLI) | payer OTHER, SELFPAY ==
--- NOTE | 2023-10-20 06:58 | CT_ITS ---
STUDY: CT CHEST WITHOUT CONTRAST REASON FOR EXAM: Male, 53 years old. Family history of CAD RADIATION DOSAGE (If Supplied By Facility): CTDIvol = ( 12.19 ) mGy, DLP = ( 195.04 ) mGycm TECHNIQUE: Transaxial imaging was performed without the administration of intravenous contrast material. Cardiac over read examination. Individualized dose optimization techniques were used for this CT. COMPARISON: No relevant priors. FINDINGS: CHEST The lungs are normal. There is no demonstrated pleural abnormality. Normal heart and pericardium. No coronary artery calcification is seen. Normal mediastinum. Normal hilar regions. Normal unenhanced pulmonary arteries. Normal aorta arch and descending thoracic aorta. Normal osseous structures. There is no demonstrated abnormality of the visualized upper abdomen. CT/Limited Chest CT Cardiac Only IMPRESSION: Normal unenhanced CT chest T abdomen examination. Electronically Signed: Naeem Ac MD at 14:05 EDT ,
--- NOTE | 2023-10-20 06:58 | CT_ITS ---
STUDY: CT CHEST WITHOUT CONTRAST REASON FOR EXAM: Male, 53 years old. Family history of CAD RADIATION DOSAGE (If Supplied By Facility): CTDIvol = ( 12.19 ) mGy, DLP = ( 195.04 ) mGycm TECHNIQUE: Transaxial imaging was performed without the administration of intravenous contrast material. Cardiac over read examination. Individualized dose optimization techniques were used for this CT. COMPARISON: No relevant priors. FINDINGS: CHEST The lungs are normal. There is no demonstrated pleural abnormality. Normal heart and pericardium. No coronary artery calcification is seen. Normal mediastinum. Normal hilar regions. Normal unenhanced pulmonary arteries. Normal aorta arch and descending thoracic aorta. Normal osseous structures. There is no demonstrated abnormality of the visualized upper abdomen. CT/Cardiac Calcium Scoring IMPRESSION: Normal unenhanced CT chest T abdomen examination. Electronically Signed: Naeem Ac MD at 14:05 EDT ,
--- NOTE | 2023-10-25 16:59 | CA.SCORE ---
Calcium Scoring Date of Study:: 10/20/23 Indications Indications: FH Coronary Calcium Scoring: High-resolution Computed Tomographic imaging of the chest was performed on [10/20/2023], with particular attention paid to the coronary arteries. Images from the examination were analyzed for the presence and extent of coronary artery calcification , using coronary calcium quantification software. The patient tolerated the procedure well and there were no complications. The results of the coronary calcification analysis are provided below. Findings Coronary Artery Left Main (LM): 0 Left Anterior Descending (LAD): 0 Left Circumflex (LCX): 0 Right Coronary Artery (RCA): 0 Total Agatston Score: 0 Percentile Rankin Calcium Scoring Interpretation: Different methods to categorize the overall amount of coronary plaque. Overall amount CAC SIS Visual of coronary plaque P1 Mild -100 <2 1-2 vessels with mild amount of plaque P2 Moderate 101-300 3-4 1-2 vessels with moderate amount, 3 vessels with mild amount of plaque P3 Severe 301-999 5-7 3 vessels with moderate amount, 1 vessel with severe amount of plaque P4 Extensive >1000 >8 2-3 vessels with severe amount of plaque Conclusion: No atherosclerotic plaquing noted.
== END | disposition home or self-care (01) ==
LOC: CT 06:57
PROVIDERS: PCP Family Medicine; Referring Provider Family Medicine; Visit Provider Family Medicine
DX: Z71.89 Other specified counseling (principal)
CPT/HCPCS: 75571; 76380

== ENCOUNTER 2024-02-28 14:02 | Emergency (ER) | payer OTHER, SELFPAY ==
[2024-02-28 14:03] VITALS: BP 104/81; PULSE 93; RESP 16; TEMP 36.8; O2SAT 97; BMI 32.7
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
== END 2024-02-28 15:43 | disposition home or self-care (01) ==
LOC: ED 15:34
PROVIDERS: Emergency Provider Emergency Medicine; PCP Family Medicine; Visit Provider Emergency Medicine
DX: T24.232A Burn of second degree of left lower leg, initial encounter (principal); T65.891A Toxic effect of other specified substances, accidental (unintentional), initial encounter
CPT/HCPCS: 99282